=== PATIENT | female | born 2000 | race Caucasian/White ===

== ENCOUNTER 2022-04-20 14:12 | Emergency (ER) | payer SELFPAY ==
[~2022-04-20] VITALS: Ht 172.7 cm; Wt 68.0 kg
[2022-04-20] MEDS ORDERED: IBUPROFEN 600MG TABLET PO ONE (15:30)
[2022-04-20] MEDS ORDERED: IBUP-2029 MT (16:37)
[2022-04-20 17:30] VITALS: BP 125/64
== END 2022-04-20 17:38 | disposition home or self-care (01) ==
LOC: ER 14:27
DX: S42.001A Fracture of unspecified part of right clavicle, initial encounter for closed fracture (principal); Y08.89XA Assault by other specified means, initial encounter; Y93.89 Activity, other specified; Y92.89 Other specified places as the place of occurrence of the external cause; Y99.8 Other external cause status; J45.909 Unspecified asthma, uncomplicated
CPT/HCPCS: 73030; 99283; A4565